=== PATIENT | male | born 1960 | race Two or more races ===

== ENCOUNTER 2022-03-09 11:24 | Day surgery (SDC) | payer MEDICAID ==
[2022-03-09] VITALS (10 sets, daily range): BP systolic 110–132; BP diastolic 67–88
[~2022-03-09] VITALS: Ht 170.2 cm; Wt 85.8 kg
[2022-03-09] MEDS ORDERED: ceFAZolin inj. 2,000 MG in normal saline soln 50 ML IV ONE (11:45)
[2022-03-09] MEDS ORDERED: normal saline 1000ml 1,000 ML IV PRN (11:50)
[2022-03-09] MEDS ORDERED: cefazolin/dext.iso 2gm/50ml 50 ML IV ONE (11:53)
[2022-03-09] MEDS ORDERED: LIDOcaine 1%/PF 5ML 10 MG/ML VIAL ONE (13:15)
[2022-03-09] MEDS ORDERED: midazolam 1 mg/ML 2ml injection ONE ×2 (13:15→13:59)
[2022-03-09] MEDS ORDERED: iohexol 300 MG/1 ML 50ml polymer ONE (13:16)
[2022-03-09] MEDS ORDERED: fentaNYL/PF 50MCG/1 ML 2ML syringe ONE ×2 (13:16→13:59)
[2022-03-09 13:21] LABS: BASOPHILS # (AUTO) 0.1 X10'3 (0-0.2); BASOPHILS % (AUTO) 1.6 % (0-1); EOSINOPHILS # (AUTO) 0.5 X10'3 (0-0.9); EOSINOPHILS % (AUTO) 10.2 % (0-6); HEMOGLOBIN 10.1 g/dl (14.0-17.9); LYMPHOCYTES # (AUTO) 1.1 X10'3 (1.1-4.8); LYMPHOCYTES % (AUTO) 23.9 % (21-51); MEAN CORPUSCULAR HEMOGLOBIN 27.7 PG (27.0-31.0); MEAN CORPUSCULAR HGB CONC 32.5 g/dL (33.0-36.5); MEAN CORPUSCULAR VOLUME 85.2 FL (78-98); MONOCYTES # (AUTO) 0.6 X10'3 (0-0.9); MONOCYTES % (AUTO) 12.7 % (2-12); NEUTROPHILS # (AUTO) 2.4 X10'3 (1.8-7.7); NEUTROPHILS % (AUTO) 51.6 % (42-75); PLATELET COUNT 190 X10'3 (140-440); RED BLOOD COUNT 3.64 X10'6 (4.70-6.10); RED CELL DISTRIBUTION WIDTH 17.9 % (11.5-14.5); WHITE BLOOD COUNT 4.6 X10'3 (4.5-11.0)
[2022-03-09 13:27] LABS: ALBUMIN 3.5 G/DL (3.4-5.0); ANION GAP 8 (8-16); BLOOD UREA NITROGEN 25 MG/DL (7-18); BUN/CREATININE RATIO 14.9 (5.4-32.0); CALCIUM 8.5 MG/DL (8.5-10.1); CHLORIDE 106 MMOL/L (99-107); CREATININE 1.68 MG/DL (0.60-1.10); GLUCOSE 125 MG/DL (70-104); POTASSIUM 4.8 MMOL/L (3.5-5.1); SODIUM 137 MMOL/L (135-145); TOTAL CARBON DIOXIDE 22.7 MMOL/L (24-32); eGFR 42 ML/MIN
[2022-03-09] MEDS ORDERED: LISI5TAB22 PO (13:33)
[2022-03-09] MEDS ORDERED: TRAZ-256 PO (13:33)
[2022-03-09] MEDS ORDERED: SILD100T70 PO (13:33)
[2022-03-09] MEDS ORDERED: SODI325T PO (13:33)
[2022-03-09] MEDS ORDERED: FERR325T7 PO (13:33)
[2022-03-09] MEDS ORDERED: BRIN15DR4 EACHEYE (13:33)
[2022-03-09] MEDS ORDERED: BRIN8DRO OP (13:33)
[2022-03-09] MEDS ORDERED: DORZ10DR10 EACHEYE (13:34)
[2022-03-09] MEDS ORDERED: CALC1TAB26 PO (13:34)
[2022-03-09] MEDS ORDERED: LATA2.5D14 EACHEYE (13:35)
[2022-03-09] MEDS ORDERED: NETA2.5D OP (13:36)
[2022-03-09] MEDS ORDERED: ONDA8TAB13 PO (13:37)
[2022-03-09] MEDS ORDERED: PIOG15TA67 PO (13:37)
[2022-03-09] MEDS ORDERED: TRAV2.5D6 EACHEYE (13:38)
== END 2022-03-09 17:27 | disposition home or self-care (01) ==
LOC: SSTAY O 11:24
PROVIDERS: ATTEND Preventive Medicine Aerospace Medicine
DX: N13.1 Hydronephrosis with ureteral stricture, not elsewhere classified (principal); E11.9 Type 2 diabetes mellitus without complications; I10 Essential (primary) hypertension; Z98.890 Other specified postprocedural states; Z85.038 Personal history of other malignant neoplasm of large intestine
CPT/HCPCS: 36415; 50432; 80048; 85025; 99152; 99153; C1729; C1769; J2250; J3010; J3490; Q9967

== ENCOUNTER 2022-05-16 08:06 | Day surgery (SDC) | payer MEDICAID ==
[~2022-05-16] VITALS: Ht 172.7 cm; Wt 86.0 kg
[2022-05-16] VITALS (7 sets, daily range): BP systolic 128–136; BP diastolic 72–79
[~2022-05-16 08:06] MED LIST: BRIN15DR4 EACHEYE; BRIN8DRO OP; CALC1TAB26 PO; DORZ10DR10 EACHEYE; FERR325T7 PO; LATA2.5D14 EACHEYE; LISI5TAB22 PO; NETA2.5D OP; ONDA8TAB13 PO; PIOG15TA67 PO; SILD100T70 PO; SODI325T PO; TRAV2.5D6 EACHEYE; TRAZ-256 PO
[2022-05-16] MEDS ORDERED: ceFAZolin inj. 2,000 MG in normal saline soln 50 ML IV ONE (08:35)
[2022-05-16] MEDS ORDERED: normal saline 1000ml 1,000 ML IV PRN (08:35)
[2022-05-16] MEDS ORDERED: cefazolin/dext.iso 2gm/100ml 100 ML IV ONE (08:40)
[2022-05-16] MEDS ORDERED: LORA-512 PO (08:52)
[2022-05-16] MEDS ORDERED: VITAMIN B12 (08:52)
[2022-05-16] MEDS ORDERED: LISI5TAB22 PO (08:52)
[2022-05-16] MEDS ORDERED: midazolam 1 mg/ML 2ml injection ONE (10:49)
[2022-05-16] MEDS ORDERED: LIDOcaine 1%/PF 5ML 10 MG/ML VIAL ONE (10:49)
[2022-05-16] MEDS ORDERED: IOHEXOL 300 MG/ML 30ML INFUS..BTL IV ONE (10:49)
[2022-05-16] MEDS ORDERED: fentaNYL/PF 50MCG/1 ML 2ML syringe ONE (10:49)
== END 2022-05-16 13:05 | disposition home or self-care (01) ==
LOC: SSTAY O 08:06
PROVIDERS: ATTEND Radiology Diagnostic Radiology
DX: Z43.6 Encounter for attention to other artificial openings of urinary tract (principal); E11.22 Type 2 diabetes mellitus with diabetic chronic kidney disease; I12.0 Hypertensive chronic kidney disease with stage 5 chronic kidney disease or end stage renal disease; N18.32 Chronic kidney disease, stage 3b; D50.9 Iron deficiency anemia, unspecified; E66.9 Obesity, unspecified; Z68.28 Body mass index [BMI] 28.0-28.9, adult; Z79.899 Other long term (current) drug therapy; Z87.891 Personal history of nicotine dependence; Z85.51 Personal history of malignant neoplasm of bladder; Z83.3 Family history of diabetes mellitus
CPT/HCPCS: 50435; 99152; 99153; C1729; C1769; J2250; J3010; J3490; J7030; 50387; A4421; A4620; A6258

== ENCOUNTER 2022-06-27 11:42 | Day surgery (SDC) | payer MEDICAID ==
[~2022-06-27] VITALS: Ht 172.7 cm; Wt 86.3 kg
[~2022-06-27 11:42] MED LIST changes: -BRIN15DR4 EACHEYE; -BRIN8DRO OP; -CALC1TAB26 PO; -DORZ10DR10 EACHEYE; -LATA2.5D14 EACHEYE; +LORA-512 PO; -NETA2.5D OP; -ONDA8TAB13 PO; -SILD100T70 PO; -TRAV2.5D6 EACHEYE; -TRAZ-256 PO; +VITAMIN B12
[2022-06-27 12:00] VITALS: BP 129/69
[2022-06-27] MEDS ORDERED: ERGO50CA PO (12:02)
[2022-06-27] MEDS ORDERED: TRAZ-256 PO (12:02)
[2022-06-27] MEDS ORDERED: LIDOcaine 1%/PF 5ML 10 MG/ML VIAL ONE (12:14)
[2022-06-27] MEDS ORDERED: iohexol 300 MG/1 ML 10ml vial ONE (12:16)
[2022-06-27] MEDS ORDERED: normal saline 1000ml 1,000 ML IV PRN (12:25)
[2022-06-27] MEDS ORDERED: ceFAZolin inj. 2,000 MG in normal saline soln 50 ML IV ONE (12:25)
[2022-06-27] MEDS ORDERED: ceFAZolin inj. 2,000 MG in dextrose 5%-water 50 ML IV ONE (12:39)
[2022-06-27] MEDS ORDERED: ceFAZolin inj. 2,000 MG in dextrose 5%-water 100 ML IV ONE (12:45)
[2022-06-27 13:25] VITALS: BP 144/78
[2022-06-27 13:40] VITALS: BP 134/81
[2022-06-27 13:55] VITALS: BP 128/77
== END 2022-06-27 14:20 | disposition home or self-care (01) ==
LOC: SSTAY O 11:42
PROVIDERS: ATTEND Radiology Vascular & Interventional Radiology
DX: Z43.6 Encounter for attention to other artificial openings of urinary tract (principal); N18.9 Chronic kidney disease, unspecified; K74.60 Unspecified cirrhosis of liver; Z79.899 Other long term (current) drug therapy; Z98.890 Other specified postprocedural states
CPT/HCPCS: 50431; J3490; J7030; Q9967; A4421; A4620; A6258

== ENCOUNTER 2022-07-30 06:47 | Day surgery (SDC) | payer MEDICAID ==
[~2022-07-30] VITALS: Ht 170.2 cm; Wt 85.4 kg
[~2022-07-30 06:47] MED LIST changes: +ERGO50CA PO; +TRAZ-256 PO
[2022-07-30] MEDS ORDERED: normal saline 1000ml 1,000 ML IV SCH (07:10)
[2022-07-30] MEDS ORDERED: cefazolin/dext.iso 2gm/100ml 100 ML IV ONE (07:10)
[2022-07-30] MEDS ORDERED: FLUT16SP26 BOTHNARES (07:28)
[2022-07-30] MEDS ORDERED: LORA-512 PO (07:29)
[2022-07-30 08:13] LABS: BASOPHILS # (AUTO) 0.1 X10'3 (0-0.2); BASOPHILS % (AUTO) 1.1 % (0-1); EOSINOPHILS # (AUTO) 0.5 X10'3 (0-0.9); EOSINOPHILS % (AUTO) 9.9 % (0-6); HEMATOCRIT 31.8 % (42.0-52.0); HEMOGLOBIN 10.7 g/dl (14.0-17.9); LYMPHOCYTES # (AUTO) 1.3 X10'3 (1.1-4.8); LYMPHOCYTES % (AUTO) 26.8 % (21-51); MEAN CORPUSCULAR HEMOGLOBIN 30.9 PG (27.0-31.0); MEAN CORPUSCULAR HGB CONC 33.5 g/dL (33.0-36.5); MEAN CORPUSCULAR VOLUME 92.1 FL (78-98); MEAN PLATELET VOLUME 7.8 FL (7.4-10.4); MONOCYTES # (AUTO) 0.6 X10'3 (0-0.9); MONOCYTES % (AUTO) 11.8 % (2-12); NEUTROPHILS # (AUTO) 2.4 X10'3 (1.8-7.7); NEUTROPHILS % (AUTO) 50.4 % (42-75); PLATELET COUNT 153 X10'3 (140-440); RED BLOOD COUNT 3.45 X10'6 (4.70-6.10); RED CELL DISTRIBUTION WIDTH 14.9 % (11.5-14.5); WHITE BLOOD COUNT 4.7 X10'3 (4.5-11.0)
[2022-07-30 08:19] VITALS: BP 125/83
--- NOTE | 2022-07-30 08:23 | NUR ---
Azam VILLALOBOS at bedside.
[2022-07-30 08:30] LABS: ALBUMIN 3.5 G/DL (3.4-5.0); ANION GAP 9 (8-16); BLOOD UREA NITROGEN 26 MG/DL (7-18); BUN/CREATININE RATIO 16.4 (5.4-32.0); CALCIUM 8.5 MG/DL (8.5-10.1); CHLORIDE 105 MMOL/L (99-107); CREATININE 1.59 MG/DL (0.60-1.10); GLUCOSE 133 MG/DL (70-104); POTASSIUM 3.8 MMOL/L (3.5-5.1); SODIUM 137 MMOL/L (135-145); TOTAL CARBON DIOXIDE 23.1 MMOL/L (24-32); eGFR 44 ML/MIN
[2022-07-30] MEDS ORDERED: midazolam 1 mg/ML 2ml injection ONE (08:33)
[2022-07-30] MEDS ORDERED: iohexol 300 MG/1 ML 10ml vial ONE (08:33)
[2022-07-30] MEDS ORDERED: fentaNYL/PF 50MCG/1 ML 2ML syringe ONE (08:33)
[2022-07-30] MEDS ORDERED: ondansetron/PF 4mg/2ml inj ONE (08:56)
[2022-07-30 09:45] VITALS: BP 132/87
[2022-07-30 10:00] VITALS: BP 132/71
[2022-07-30 10:15] VITALS: BP 132/83
[2022-07-30 10:30] VITALS: BP 129/84
== END 2022-07-30 10:50 | disposition home or self-care (01) ==
LOC: SSTAY O 06:47
PROVIDERS: ATTEND Radiology Diagnostic Radiology
DX: Z43.6 Encounter for attention to other artificial openings of urinary tract (principal); N18.9 Chronic kidney disease, unspecified; K74.60 Unspecified cirrhosis of liver; Z79.899 Other long term (current) drug therapy; Z98.890 Other specified postprocedural states
CPT/HCPCS: 36415; 50435; 80048; 82948; 85025; 99152; C1729; C1769; J0690; J2405; J3010; J7030; Q9967; 50387; A4421; A4620; A6258; A6449; J2250

== ENCOUNTER 2022-10-29 06:49 | Day surgery (SDC) | payer MEDICAID ==
[~2022-10-29] VITALS: Ht 172.7 cm; Wt 85.5 kg
[~2022-10-29 06:49] MED LIST changes: +FLUT16SP26 BOTHNARES; -TRAZ-256 PO
[2022-10-29 07:18] VITALS: BP 134/81
--- NOTE | 2022-10-29 07:50 | NUR ---
Pt complaint of nausea. Given basin. Pt has not vomited. Resp even and Spo2 97%. Addendum: 10/29/22 at 0851 by Nia Arredondo RN Denies cp, denies sob.
[2022-10-29 07:59] LABS: BASOPHILS # (AUTO) 0.1 X10'3 (0-0.2); BASOPHILS % (AUTO) 1.9 % (0-1); EOSINOPHILS # (AUTO) 0.4 X10'3 (0-0.9); EOSINOPHILS % (AUTO) 9.1 % (0-6); HEMATOCRIT 34.2 % (42.0-52.0); HEMOGLOBIN 11.5 g/dl (14.0-17.9); LYMPHOCYTES # (AUTO) 0.9 X10'3 (1.1-4.8); LYMPHOCYTES % (AUTO) 19.7 % (21-51); MEAN CORPUSCULAR HGB CONC 33.5 g/dL (33.0-36.5); MEAN CORPUSCULAR VOLUME 95.5 FL (78-98); MEAN PLATELET VOLUME 7.9 FL (7.4-10.4); MONOCYTES # (AUTO) 0.5 X10'3 (0-0.9); MONOCYTES % (AUTO) 11.4 % (2-12); NEUTROPHILS # (AUTO) 2.6 X10'3 (1.8-7.7); NEUTROPHILS % (AUTO) 57.9 % (42-75); PLATELET COUNT 150 X10'3 (140-440); RED BLOOD COUNT 3.58 X10'6 (4.70-6.10); RED CELL DISTRIBUTION WIDTH 14.8 % (11.5-14.5); WHITE BLOOD COUNT 4.4 X10'3 (4.5-11.0)
[2022-10-29] MEDS ORDERED: CEFP200T13 PO (08:07)
[2022-10-29] MEDS ORDERED: iohexol 300mg/ml 100ml inj. ONE (08:31)
[2022-10-29] MEDS ORDERED: LIDOcaine 1% 30ml preserv. free vial ONE (08:31)
[2022-10-29] MEDS ORDERED: ondansetron/PF 4mg/2ml inj ONE (08:44)
[2022-10-29] MEDS ORDERED: ondansetron/PF 4mg/2ml inj IV ONE (08:45)
[2022-10-29] MEDS ORDERED: FENTANYL CITRATE/PF 50 MCG/1 ML VIAL ONE (09:14)
[2022-10-29 10:00] VITALS: BP 137/96
[2022-10-29 10:15] VITALS: BP 134/81
== END 2022-10-29 10:18 | disposition home or self-care (01) ==
LOC: SSTAY O 06:49
PROVIDERS: ATTEND Radiology Vascular & Interventional Radiology
DX: Z43.6 Encounter for attention to other artificial openings of urinary tract (principal); N18.9 Chronic kidney disease, unspecified; K74.60 Unspecified cirrhosis of liver; Z79.899 Other long term (current) drug therapy; Z98.890 Other specified postprocedural states
CPT/HCPCS: 36415; 50435; 85025; 85610; C1729; C1769; J2405; J3010; J3490; J7030; Q9967; 50387; A4421; A6258; A6449

== ENCOUNTER 2022-12-28 06:54 | Day surgery (SDC) | payer MEDICARE, MEDICAID ==
[~2022-12-28] VITALS: Ht 170.2 cm; Wt 86.9 kg
[~2022-12-28 06:54] MED LIST changes: +CEFP200T13 PO
[2022-12-28 07:20] VITALS: BP 126/70
[2022-12-28] MEDS ORDERED: SERT-432 PO (07:32)
[2022-12-28] MEDS ORDERED: TADA20TA43 PO (07:32)
[2022-12-28] MEDS ORDERED: LATA2.5D14 EACHEYE (07:32)
[2022-12-28] MEDS ORDERED: BRIN15DR4 EACHEYE (07:32)
[2022-12-28] MEDS ORDERED: BRIN10DR6 EACHEYE (07:32)
[2022-12-28] MEDS ORDERED: CIPR500T5 PO (07:32)
[2022-12-28] MEDS ORDERED: BRIM5DRO16 EACHEYE (07:32)
[2022-12-28] MEDS ORDERED: DORZ10DR10 EACHEYE (07:32)
[2022-12-28] MEDS ORDERED: NETA2.5D EACHEYE (07:32)
[2022-12-28] MEDS ORDERED: SILD100T70 PO (07:32)
[2022-12-28] MEDS ORDERED: TRAZ-256 PO (07:32)
[2022-12-28] MEDS ORDERED: cefazolin/dext.iso 2gm/100ml 100 ML IV ONE (07:35)
[2022-12-28] MEDS ORDERED: ceFAZolin/D5W- 1GM premix 50 ML IV ONE (07:35)
[2022-12-28] MEDS ORDERED: normal saline 1000ml 1,000 ML IV PRN (07:35)
[2022-12-28] MEDS ORDERED: midazolam 1 mg/ML 2ml injection ONE (08:13)
[2022-12-28] MEDS ORDERED: fentaNYL/PF 50MCG/1 ML 2ML syringe ONE (08:13)
[2022-12-28] MEDS ORDERED: ondansetron/PF 4mg/2ml inj ONE (08:27)
[2022-12-28 09:01] VITALS: BP 140/81
[2022-12-28 09:15] VITALS: BP 139/84
[2022-12-28 09:30] VITALS: BP 136/86
[2022-12-28 09:45] VITALS: BP 142/80
[2022-12-28 10:00] VITALS: BP 128/70
== END 2022-12-28 10:05 | disposition home or self-care (01) ==
LOC: SSTAY O 06:54
PROVIDERS: ATTEND Radiology Diagnostic Radiology
DX: Z43.6 Encounter for attention to other artificial openings of urinary tract (principal); N13.2 Hydronephrosis with renal and ureteral calculous obstruction; E11.22 Type 2 diabetes mellitus with diabetic chronic kidney disease; I12.9 Hypertensive chronic kidney disease with stage 1 through stage 4 chronic kidney disease, or unspecified chronic kidney disease; N18.30 Chronic kidney disease, stage 3 unspecified; E66.9 Obesity, unspecified; Z68.30 Body mass index [BMI] 30.0-30.9, adult; Z98.890 Other specified postprocedural states; Z85.038 Personal history of other malignant neoplasm of large intestine; Z79.899 Other long term (current) drug therapy
CPT/HCPCS: 50435; 99152; C1729; C1769; J2250; J2405; J3010; J7030; 50387; A4421; A4620; A6258

== ENCOUNTER 2023-10-16 06:12 | Day surgery (SDC) | payer MEDICARE, MEDICAID ==
[~2023-10-16] VITALS: Ht 170.2 cm; Wt 90.2 kg
[2023-10-16] VITALS (10 sets, daily range): BP systolic 90–133; BP diastolic 45–82; PULSE 45–95; RESP 14–18; TEMP 98; O2SAT 95–98
[~2023-10-16 06:12] MED LIST changes: -CEFP200T13 PO; +CHOL50004 PO; +CYAN-34 PO; +DORZ10DR10 EACHEYE; -ERGO50CA PO; -FERR325T7 PO; +SILD100T70 PO; +TADA20TA43 PO; +TRAZ-256 PO; -VITAMIN B12
[2023-10-16] MEDS ORDERED: normal saline 1000ml 1,000 ML IV PRN (06:35)
[2023-10-16] MEDS ORDERED: PROC10TA97 PO (06:52)
[2023-10-16 07:21] LABS: BASOPHILS # (AUTO) 0.1 X10'3 (0-0.2); BASOPHILS % (AUTO) 0.3 % (0-1); EOSINOPHILS % (AUTO) 0 % (0-6); HEMATOCRIT 37.7 % (42.0-52.0); HEMOGLOBIN 12.5 g/dl (14.0-17.9); LYMPHOCYTES # (AUTO) 0.8 X10'3 (1.1-4.8); LYMPHOCYTES % (AUTO) 4.8 % (21-51); MEAN CORPUSCULAR HEMOGLOBIN 31.3 PG (27.0-31.0); MEAN CORPUSCULAR HGB CONC 33.2 g/dL (33.0-36.5); MEAN CORPUSCULAR VOLUME 94.4 FL (78-98); MEAN PLATELET VOLUME 7.6 FL (7.4-10.4); MONOCYTES # (AUTO) 0.7 X10'3 (0-0.9); MONOCYTES % (AUTO) 4.1 % (2-12); NEUTROPHILS # (AUTO) 15.4 X10'3 (1.8-7.7); NEUTROPHILS % (AUTO) 90.8 % (42-75); PLATELET COUNT 160 X10'3 (140-440); RED BLOOD COUNT 3.99 X10'6 (4.70-6.10); RED CELL DISTRIBUTION WIDTH 14.6 % (11.5-14.5)
[2023-10-16 08:08] LABS: INR 1.1 INR; PROTHROMBIN TIME 11.8 SECONDS (9.0-12.0)
[2023-10-16] MEDS ORDERED: diatrozoate meglu/diatrozoate sod (37% iodine) 120ML oral solution PO ONE (09:00)
[2023-10-16] MEDS ORDERED: diatr meglu/diatrizoate 30ml oral sol.-(3 dose) bottle PO ONE (09:00)
[2023-10-16 09:56] LABS: ALANINE AMINOTRANSFERASE 37 U/L (12-78); ALBUMIN 3.3 G/DL (3.4-5.0); ALKALINE PHOSPHATASE 157 IU/L (46-116); ANION GAP 11 (8-16); ASPARTATE AMINO TRANSFERASE 35 U/L (10-37); BILIRUBIN,TOTAL 0.3 MG/DL (0.1-1.0); BLOOD UREA NITROGEN 27 MG/DL (7-18); BUN/CREATININE RATIO 14.1 (10.0-20.0); CALCIUM 8.5 MG/DL (8.5-10.1); CHLORIDE 102 MMOL/L (99-107); CREATININE 1.92 MG/DL (0.60-1.10); GLUCOSE 169 MG/DL (70-104); POTASSIUM 4.5 MMOL/L (3.5-5.1); SODIUM 134 MMOL/L (135-145); TOTAL CARBON DIOXIDE 21.2 MMOL/L (24-32); TOTAL PROTEIN 6.5 G/DL (6.4-8.2); eCRCL 37 ML/MIN; eGFR 36 ML/MIN
[2023-10-16] MEDS ORDERED: iohexol 300mg/ml 100ml inj. ONE (11:22)
[2023-10-16] MEDS ORDERED: ondansetron/PF 4mg/2ml inj ONE (11:37)
[2023-10-16] MEDS ORDERED: fentaNYL/PF 50MCG/1 ML 2ML syringe ONE (11:49)
[2023-10-16] MEDS ORDERED: midazolam 1 mg/ML 2ml injection ONE (11:49)
[2023-10-16] MEDS ORDERED: LIDOcaine 1% (10mg/ml) 2ml vial ONE (11:50)
== END 2023-10-16 13:45 | disposition home or self-care (01) ==
LOC: SSTAY O 06:12
PROVIDERS: ATTEND Radiology Vascular & Interventional Radiology
DX: R19.09 Other intra-abdominal and pelvic swelling, mass and lump (principal); C79.89 Secondary malignant neoplasm of other specified sites; C18.9 Malignant neoplasm of colon, unspecified; E11.22 Type 2 diabetes mellitus with diabetic chronic kidney disease; I12.9 Hypertensive chronic kidney disease with stage 1 through stage 4 chronic kidney disease, or unspecified chronic kidney disease; N18.30 Chronic kidney disease, stage 3 unspecified; Z79.899 Other long term (current) drug therapy; Z79.84 Long term (current) use of oral hypoglycemic drugs
CPT/HCPCS: 36415; 49180; 77012; 80053; 85025; 85610; J2250; J2405; J3010; J3490; J7030; J7040; Q9963; Q9967; 99152; 99153; A4314; A6449

== ENCOUNTER 2024-01-15 11:09 | Day surgery (SDC) | payer MEDICARE, MEDICAID ==
[~2024-01-15] VITALS: Ht 172.7 cm; Wt 84.0 kg
[~2024-01-15 11:09] MED LIST changes: +PROC10TA97 PO; -TADA20TA43 PO
[2024-01-15 11:30] VITALS: BP 135/76; PULSE 79; RESP 16; TEMP 97.6; O2SAT 100
[2024-01-15] MEDS ORDERED: ceFAZolin 1000mg inj IV ONE (11:30)
[2024-01-15] MEDS ORDERED: SEMA0.258 INJ (11:31)
[2024-01-15] MEDS ORDERED: ceFAZolin 1,000 MG in NS 50ML IVPB IV ONE (11:40)
[2024-01-15] MEDS: normal saline 1000ml 1,000 ML IV PRN (12:02)
[2024-01-15 12:15] LABS: BASOPHILS % (AUTO) 0.3 % (0-1); EOSINOPHILS # (AUTO) 0.3 X10'3 (0-0.9); EOSINOPHILS % (AUTO) 2.7 % (0-6); HEMATOCRIT 25.7 % (42.0-52.0); HEMOGLOBIN 8.4 g/dl (14.0-17.9); INR 1.1 INR; LYMPHOCYTES # (AUTO) 0.9 X10'3 (1.1-4.8); LYMPHOCYTES % (AUTO) 8.7 % (21-51); MEAN CORPUSCULAR HEMOGLOBIN 31.3 PG (27.0-31.0); MEAN CORPUSCULAR HGB CONC 32.7 g/dL (33.0-36.5); MEAN CORPUSCULAR VOLUME 95.8 FL (78-98); MEAN PLATELET VOLUME 7.4 FL (7.4-10.4); MONOCYTES # (AUTO) 0.8 X10'3 (0-0.9); MONOCYTES % (AUTO) 7.4 % (2-12); NEUTROPHILS # (AUTO) 8.8 X10'3 (1.8-7.7); NEUTROPHILS % (AUTO) 80.9 % (42-75); PLATELET COUNT 127 X10'3 (140-440); PROTHROMBIN TIME 12.2 SECONDS (9.0-12.0); RED BLOOD COUNT 2.68 X10'6 (4.70-6.10); RED CELL DISTRIBUTION WIDTH 17.3 % (11.5-14.5); WHITE BLOOD COUNT 10.9 X10'3 (4.5-11.0)
[2024-01-15 12:43] LABS: ANISOCYTOSIS 1+; BURR CELLS FEW; PLATELET ESTIMATE DECREASED; TEAR DROP CELLS FEW
[2024-01-15] MEDS ORDERED: iohexol 300 MG/1 ML 50ml polymer ONE (13:10)
[2024-01-15] MEDS ORDERED: fentaNYL/PF 50MCG/1 ML 2ML syringe ONE (13:49)
[2024-01-15] MEDS ORDERED: diphenhydrAMINE 50 mg/ml inj ONE (13:50)
[2024-01-15 14:25] VITALS: BP 120/75; PULSE 85; RESP 16; O2SAT 95
[2024-01-15 14:40] VITALS: BP 114/60; PULSE 78; RESP 15; O2SAT 99
[2024-01-15 14:55] VITALS: BP 136/79; PULSE 81; RESP 15; O2SAT 100
== END 2024-01-15 15:10 | disposition home or self-care (01) ==
LOC: SSTAY O 11:09
PROVIDERS: ATTEND Radiology Vascular & Interventional Radiology
DX: T83.032A Leakage of nephrostomy catheter, initial encounter (principal); N13.2 Hydronephrosis with renal and ureteral calculous obstruction; E11.22 Type 2 diabetes mellitus with diabetic chronic kidney disease; I12.9 Hypertensive chronic kidney disease with stage 1 through stage 4 chronic kidney disease, or unspecified chronic kidney disease; N18.30 Chronic kidney disease, stage 3 unspecified; D50.9 Iron deficiency anemia, unspecified; E66.9 Obesity, unspecified; Z68.28 Body mass index [BMI] 28.0-28.9, adult; Z87.891 Personal history of nicotine dependence; Z85.038 Personal history of other malignant neoplasm of large intestine; Z79.899 Other long term (current) drug therapy; Y83.8 Other surgical procedures as the cause of abnormal reaction of the patient, or of later complication, without mention of misadventure at the time of the procedure; Y92.89 Other specified places as the place of occurrence of the external cause
CPT/HCPCS: 36415; 50435; 85025; 85610; C1729; C1769; J1200; J3010; J7030; Q9967; 85008; A4421; A6258